=== PATIENT | male | born 1960 | race African-American/Black ===

== ENCOUNTER 2016-09-23 10:57 | Inpatient (IN) | payer BC ==
[2016-09-23 11:21] VITALS: BMI 35.9
--- NOTE | 2016-09-23 11:40 | PDOC ---
History of Present Illness - General Chief Complaint: Nausea/Vomiting Stated Complaint: LOSS OF APPETITE, VOMITING Time Seen by Provider: 09/23/16 11:30 History Source: Patient Exam Limitations: No Limitations - History of Present Illness Initial Comments: 09/23/16 11:57 Patient is a 55 year old male with PMH of autoimmune hepatitis, alcohol-induced pancreatitis, depression & hypertension who presents to ED with 3 days fatigue. He states he has felt weak, with no appetite for 3 days. He also reports intermittent hiccups that last as long as 3 hours over the same time period increased gas. He had 1 episode of vomiting last night, with minimal nonbloody nonbilious output. Denies diarrhea but says he has had to strain during bowel movements in last few days and had some pink blood noted on his toilet paper this morning. Denies fever, chills, cough, shortness of breath, chest pain, change in vision or abdominal pain. Last colonoscopy was 5 years ago. Past History - Travel Traveled outside of the country in the last 30 days: No Close contact w/someone who was outside of country & ill: No - Past Medical History Allergies/Adverse Reactions: Allergies Allergy/AdvReac Type Severity Reaction Status Date / Time ciprofloxacin [From Cipro] Allergy Rash Verified 09/23/16 11:16 ciprofloxacin HCl Allergy Rash Verified 09/23/16 11:16 [From Cipro] Home Medications: Ambulatory Orders Alprazolam [Xanax] 2 mg PO BID PRN 09/23/16 Amlodipine Besylate [Norvasc -] 10 mg PO DAILY 09/23/16 Azathioprine [Imuran -] 50 mg PO DAILY 09/23/16 Fenofibrate 290 mg PO BID 09/23/16 Lisinopril [Prinivil] 20 mg PO DAILY 09/23/16 [place]-3 Acid Ethyl Esters [Lovaza] 1 gm PO DAILY 09/23/16 GI Disorders: Yes (PANCREATITIS 2009, Autoimmune Hepatitis) HTN: Yes - Family Disease History Comment:: 09/23/16 12:09 noncontributory - Psycho/Social/Smoking Cessation Hx Anxiety: No Suicidal Ideation: No Smoking Status: Yes Smoking History: Former smoker Have you smoked in the past 12 months: No Number of Cigarettes Smoked Daily: 0 Cigars Per Day: 1 Information on smoking cessation initiated: No Hx Alcohol Use: Yes Drug/Substance Use Hx: No Review of Systems - Review of Systems Able to Perform ROS?: Yes Is the patient limited Senegalese proficient: No Constitutional: Yes: Loss of Appetite. No: Chills, Fever HEENTM: No: Blurred Vision, Tinnitus, Throat Pain, Difficulty Swallowing Respiratory: No: Cough, Shortness of Breath, Wheezing Cardiac (ROS): No: Chest Pain, Edema, Lightheadedness, Palpitations ABD/GI: Yes: Vomiting. No: Constipated, Diarrhea, Tarry Stools : No: Burning, Dysuria Musculoskeletal: No: Back Pain Neurological: No: Headache, Numbness, Paresthesia, Ataxia Psychiatric: Yes: Anxiety All Other Systems: Reviewed and Negative *Physical Exam - Vital Signs Last Vital Signs Temp Pulse Resp BP Pulse Ox 98.3 F 133 H 20 107/73 97 09/23/16 11:16 09/23/16 11:16 09/23/16 11:16 09/23/16 11:16 09/23/16 11:16 - Physical Exam Comments: 09/23/16 12:12 Hiccups during exam General Appearance: Yes: Nourished, Appropriately Dressed HEENT: positive: EOMI, JAIME, Pharynx Normal, Scleral Icterus (R), Scleral Icterus (L) Neck: positive: Trachea midline, Normal Thyroid, Supple Respiratory/Chest: positive: Lungs Clear, Normal Breath Sounds Cardiovascular: positive: Regular Rhythm, S1, S2, Tachycardia Gastrointestinal/Abdominal: positive: Normal Bowel Sounds, Flat, Soft Musculoskeletal: positive: Normal Inspection Extremity: positive: Normal Inspection, Normal Range of Motion Integumentary: positive: Dry, Warm, Jaundice (very mild) Neurologic: positive: wood barker II-XII NML intact, Fully Oriented, Alert, Normal Mood/ Affect, Motor Strength 5/5 ED Treatment Course - LABORATORY CBC & Chemistry Diagram: 09/23/16 12:06 09/23/16 12:06 Medical Decision Making - Medical Decision Making 09/23/16 12:13 Ordered CBC, CMP, Lipase, Influenza swab. Jaundice, history of pancreatitis, loss of appetite, hiccups concerning for abdominal malignancy. Will very likely need CT imaging once blood tests return. 09/23/16 14:02 LFT's and Total Bilirubin markedly elevated. Will order CT Abdomen/Pelvis without contrast (Cr 1.4). 09/23/16 15:59 CT shows diffuse fatty infiltration of liver but no acute pathology or obvious malignancies.Will discuss elevated LFT's & bilirubin with patient GI Dr Sánchez. 09/23/16 16:31 Received blood testing results from Dr Sánchez's office. On August 11, 2016 AST & ALT were both 35. Total bilirubin was 0.6. Total Bilirubin was 0.3. Patient has had acute tramsaminitis & acute hyperbilirubinemia. Will discuss admission with hospitalist service. 09/23/16 16:[address] Sánchez who agrees patient needs admission for further workup. Spoke with Dr Franco who agrees to admit patient under hospitalist service. *DC/Admit/Observation/Transfer Diagnosis at time of Disposition: Elevated transaminase measurement, Hyperbilirubinemia - Discharge Dispostion Admit: Yes
--- NOTE | 2016-09-23 12:19 | PDOC ---
Attending Attestation - Resident Resident Name: Mark Chandra - ED Attending Attestation I have performed the following: I have examined & evaluated the patient, The case was reviewed & discussed with the resident, I agree w/resident's findings & plan, Exceptions are as noted - HPI HPI: 55 yo M history autoimmune hepatitis, pancreatitis, depression, hypertension presents with 3 days fatigue, weakness, poor appetite. Poor PO intake as well. He has recently noted that he is having intermittent hiccups that can last for hours at a time. Noted trace blood after defecating. No recent illness. - Physicial Exam PE: GENERAL: Awake, alert, and fully oriented, in no acute distress. +Jaundice. HEAD: No signs of trauma EYES: PERRLA, EOMI, +scleral icterus, conjunctiva clear ENT: Auricles normal inspection, hearing grossly normal, nares patent, oropharynx clear without exudates. Moist mucosa NECK: Normal ROM, supple, no lymphadenopathy, JVD, or masses LUNGS: Breath sounds equal, clear to auscultation bilaterally. No wheezes, and no crackles HEART: Regular rate and rhythm, normal S1 and S2, no murmurs, rubs or gallops ABDOMEN: Soft, nontender, normoactive bowel sounds. No guarding, no rebound. No masses EXTREMITIES: Normal range of motion, no edema. No clubbing or cyanosis. No cords, erythema, or tenderness NEUROLOGICAL: Cranial nerves II through XII grossly intact. Normal speech, normal gait SKIN: Warm, Dry, normal turgor, no rashes or lesions noted. - Medical Decision Making 55 yo M history autoimmune hepatitis, pancreatitis presenting with jaundice, poor appetite. Labs show significantly elevated LFTs, which are above baseline as per Dr. Sánchez. Will admit.
[2016-09-23] MEDS ORDERED: SODIUM CHLORIDE 1,000 ML IV STA (13:21)
[2016-09-23 13:30] LABS: BASOPHIL 0.2 % (0-2.0); EOSINOPHIL 0.3 % (0-4.5); MCH 31.9 pg (25.7-33.7); MCHC 33.2 g/dl (32.0-35.9); MEAN PLT VOLUME 10.3 fl (7.5-11.1); NEUTROPHILS 81.5 % (42.8-82.8); PLATELET COUNT 113 K/MM3 (134-434); WHITE BLOOD COUNT 6.5 K/mm3 (4.0-10.0)
[2016-09-23 13:53] LABS: ALBUMIN 3.1 g/dl (3.4-5.0); BILIRUBIN,TOTAL 5.9 mg/dL (0.2-1.0); CALCIUM 8.8 mg/dL (8.5-10.1); CREATININE 1.4 mg/dL (0.7-1.3); TOT PROT 6.4 g/dl (6.4-8.2)
--- NOTE | 2016-09-23 18:46 | PN ---
Progress Note (short form) - Note Progress Note: Patient seen, labs reviewed Longstanding patient of mine, with auto-immune hepatitis, now with breakthrough On azathioprine to now with normal LFT's last month. Will start steroids at this time Check for acute hepatitis Expect improvement Full consult to follow
--- NOTE | 2016-09-23 18:47 | PN ---
Teaching Attending Note Name of Resident: Alise Bailey ATTENDING PHYSICIAN STATEMENT I saw and evaluated the patient. I reviewed the resident's note and discussed the case with the resident. I agree with the resident's findings and plan as documented. SUBJECTIVE: Patient is comfortable, denies having any pain or shortness of breath, denies any jaundice or yellow abdomen, the only time patient realized when he was told by ED.doctors. that his eyes are yellow. OBJECTIVE: Vital Signs Temperature 98.3 F 09/23/16 17:56 Pulse Rate 109 H 09/23/16 17:56 Respiratory Rate 18 09/23/16 17:56 Blood Pressure 124/78 09/23/16 17:56 O2 Sat by Pulse Oximetry (%) 98 09/23/16 17:56 General Appearance: Yes: Nourished, Appropriately Dressed HEENT: positive: EOMI, JAIME, Pharynx Normal, Scleral Icterus bl Neck: positive: Trachea midline, Normal Thyroid, Supple Respiratory/Chest: positive: Lungs Clear, Normal Breath Sounds Cardiovascular: positive: Regular Rhythm, S1, S2, Tachycardia Gastrointestinal/Abdominal: positive: Normal Bowel Sounds, Flat, Soft Musculoskeletal: positive: Normal Inspection Extremity: positive: Normal Inspection, Normal Range of Motion Integumentary: positive: Dry, Warm, Jaundice (very mild) Neurologic: positive: public services assistant II-XII NML intact, Fully Oriented, Alert, Normal Mood/ Affect, Motor Strength 5/5 CBCD WBC 6.5 K/mm3 (4.0-10.0) 09/23/16 12:06 RBC 4.80 M/mm3 (4.00-5.60) 09/23/16 12:06 Hgb 15.3 GM/dL (11.7-16.9) D 09/23/16 12:06 Hct 46.0 % (35.4-49) 09/23/16 12:06 MCV 96.0 fl (80-96) 09/23/16 12:06 MCHC 33.2 g/dl (32.0-35.9) 09/23/16 12:06 RDW 15.0 % (11.9-15.9) D 09/23/16 12:06 Plt Count 113 K/MM3 (134-434) L D 09/23/16 12:06 MPV 10.3 fl (7.5-11.1) 09/23/16 12:06 CMP Sodium 134 mmol/L (136-145) L 09/23/16 12:06 Potassium 4.2 mmol/L (3.5-5.1) 09/23/16 12:06 Chloride 93 mmol/L (98-107) L D 09/23/16 12:06 Carbon Dioxide 29 mmol/L (21-32) 09/23/16 12:06 Anion Gap 12 (8-16) 09/23/16 12:06 BUN 12 mg/dL (7-18) 09/23/16 12:06 Creatinine 1.4 mg/dL (0.7-1.3) H D 09/23/16 12:06 Creat Clearance w eGFR 52.81 (>60) 09/23/16 12:06 Random Glucose 112 mg/dL (74-106) H D 09/23/16 12:06 Calcium 8.8 mg/dL (8.5-10.1) 09/23/16 12:06 Total Bilirubin 5.9 mg/dL (0.2-1.0) H D 09/23/16 12:06 AST 694 U/L (15-37) H D 09/23/16 12:06 ALT 347 U/L (12-78) H D 09/23/16 12:06 Alkaline Phosphatase 99 U/L (45-117) D 09/23/16 12:06 Total Protein 6.4 g/dl (6.4-8.2) 09/23/16 12:06 Albumin 3.1 g/dl (3.4-5.0) L 09/23/16 12:06 Current Medications Generic Name Dose Route Start Last Admin Trade Name Freq PRN Reason Stop Dose Admin Methylprednisolone Sodium Succinate 40 mg 09/23/16 18:15 Solu-Medrol - IVPB Q8H-IV [facility] Home Medications Medication Instructions Recorded Alprazolam [Xanax] 2 mg PO BID PRN 09/23/16 Amlodipine Besylate [Norvasc -] 10 mg PO DAILY 09/23/16 Azathioprine [Imuran -] 50 mg PO DAILY 09/23/16 Fenofibrate 290 mg PO BID 09/23/16 Lisinopril [Prinivil] 20 mg PO DAILY 09/23/16 [place]-3 Acid Ethyl Esters [Lovaza] 1 gm PO DAILY 09/23/16 ASSESSMENT AND PLAN: Patient is a 55 year old male with PMHx of autoimmune hepatitis, alcohol- induced pancreatitis 2008, HTN, depression who presents to the hospital complaining of fatigue for the past 3 days. # Recurrence of auto-immune hepatitis ; Patient of Dr. Princess DELAVLLE , placed on IV steroids. Protonix continue, continue Imuran; will trend the LFTs daily. # Hx of HTN continue home meds # HLD continue Lovaza, Finofibrate DVt Px: SCD
--- NOTE | 2016-09-23 19:01 | HP ---
CHIEF COMPLAINT: weakness PCP: HISTORY OF PRESENT ILLNESS: Patient is a 55 year old male with PMH of autoimmune hepatitis, alcohol-induced pancreatitis 2008, HTN, depression who presents to the hospital complaining of fatigue for 3 days. He states that didn't have appetite for 3 days and had intermittent hiccups, increased gas. He had 2 episodes of vomiting last night, non-bloody non-bilious output. He states that recently his bowel movements are hard, not sure if he noticed any blood in it. He was told in ED that his eyes look yellow. He states that has never felt like that before. Denies fever, chills cough, shortness of breath, chest pain, change in vision or abdominal pain, dysuria, increased frequency, urgency. ER course was notable for: (1) AST 697, ALT 347 (2)Cr 1.4, (3)PLt 113 PAST MEDICAL HISTORY: Autoimmune hepatitis diagnosed 2 years ago, treated with AZA and Prednisone. Hearing loss. PAST SURGICAL HISTORY: cholesteatoma removal on right side Social History: Smoking:Former smoker Alcohol:Denies Drugs: Denies Family History: N/A Allergies: ciprofloxacin [From Cipro] Allergy (Verified 09/23/16 11:16) Rash ciprofloxacin HCl [From Cipro] Allergy (Verified 09/23/16 11:16) Rash HOME MEDICATIONS: Home Medications Medication Instructions Recorded Alprazolam [Xanax] 2 mg PO BID PRN 09/23/16 Amlodipine Besylate [Norvasc -] 10 mg PO DAILY 09/23/16 Azathioprine [Imuran -] 50 mg PO DAILY 09/23/16 Fenofibrate 290 mg PO BID 09/23/16 Lisinopril [Prinivil] 20 mg PO DAILY 09/23/16 [place]-3 Acid Ethyl Esters [Lovaza] 1 gm PO DAILY 09/23/16 REVIEW OF SYSTEMS CONSTITUTIONAL: generalized weakness, malaise, loss of appetite, Absent: fever, chills, diaphoresis, weight change HEENT: Absent: rhinorrhea, nasal congestion, throat pain, throat swelling, difficulty swallowing, mouth swelling, ear pain, eye pain, visual changes CARDIOVASCULAR: Absent: chest pain, syncope, palpitations, irregular heart rate, lightheadedness , peripheral edema RESPIRATORY: Absent: cough, shortness of breath, dyspnea with exertion, orthopnea, wheezing, stridor, hemoptysis GASTROINTESTINAL: Absent: abdominal pain, abdominal distension, nausea, vomiting, diarrhea, constipation, melena, hematochezia GENITOURINARY: Absent: dysuria, frequency, urgency, hesitancy, hematuria, flank pain, genital pain MUSCULOSKELETAL: Absent: myalgia, arthralgia, joint swelling, back pain, neck pain ENDOCRINE: Absent: unexplained weight gain, unexplained weight loss, NEUROLOGIC: Absent: headache, bladder or bowel incontinence PSYCHIATRIC: Absent: anxiety, depression, suicidal or homicidal ideation, hallucinations. PHYSICAL EXAMINATION Vital Signs - 24 hr 09/23/16 17:56 Temperature 98.3 F Pulse Rate [ 109 H Right] Respiratory 18 Rate Blood Pressure 124/78 [Right Arm] O2 Sat by Pulse 98 Oximetry (%) GENERAL: Awake, alert, and fully oriented, in no acute distress. HEAD: Normal with no signs of trauma. EYES: extraocular movements intact, sclera icteric, conjunctiva clear. No lid lag. EARS, NOSE, THROAT: Moist mucous membranes, hearing aid. NECK: supple without lymphadenopathy or masses. LUNGS: Breath sounds equal, clear to auscultation bilaterally. No wheezes, and no crackles. No accessory muscle use. HEART: Regular rate and rhythm, normal S1 and S2 without murmur, rub or gallop. ABDOMEN: Soft, nontender, not distended, normoactive bowel sounds, no guarding, no rebound, no masses. MUSCULOSKELETAL: No bony deformities or tenderness. UPPER EXTREMITIES: No peripheral edema. LOWER EXTREMITIES: No peripheral edema. NEUROLOGICAL: Normal speech. Gait not observed. PSYCHIATRIC: Cooperative. Good eye contact. Appropriate mood and affect. SKIN: Warm, dry, normal turgor, no rashes or lesions noted. ASSESSMENT/PLAN: Patient is a 55 year old male with PMH of autoimmune hepatitis, alcohol-induced pancreatitis 2008, HTN, depression who presents to the hospital complaining of fatigue for 3 days. He states that didn't have appetite for 3 days and had intermittent hiccups, increased gas. He had 2 episodes of vomiting last night, non-bloody non-bilious output. He states that recently his bowel movements are hard, not sure if he noticed any blood in it. He was told recently that his eyes look yellow. Autoimmune hepatitis: -recurrence of previously well controlled disease -steroids: Methylprednisolone 40mg IV Q8H -HCV ab -liver panel -HBs Ag -f/u GI consultation -CT abdomen no acute pathology GREGORY: -Cr 1.4 -IVF -avoid nephrotoxic substances Thrombocytopenia: -continue steroids Depression: -continue Xanax HTN: -continue Lisinopril 20 mg qd and Amlodipine 10 mg qd Hypertriglyceridemia: -continue fenofibrate 290 mg PO BID F/E/N: NS/low Na/low sodium low cholesterol Disposition: Med Surg. Problem List - Problem (1) Hyperbilirubinemia Code(s): E80.6 - OTHER DISORDERS OF BILIRUBIN METABOLISM (2) Transaminitis Code(s): R74.0 - NONSPEC ELEV OF LEVELS OF TRANSAMNS & LACTIC ACID DEHYDRGNSE Visit type - Emergency Visit Emergency Visit: Yes ED Registration Date: 09/23/16 Care time: The patient presented to the Emergency Department on the above date and was hospitalized for further evaluation of their emergent condition. - New Patient This patient is new to me today: Yes Date on this admission: 09/23/16 - Critical Care Critical Care patient: No
[2016-09-23] MEDS: methylPREDNISolone NA SUCC 40 MG/1 ML VIAL IVPB SCH (19:30)
[2016-09-23] MEDS ORDERED: methylPREDNISolone NA SUCC 40 MG/1 ML VIAL ONE (19:33)
[2016-09-23] MEDS: SODIUM CHLORIDE 0.45% 1,000 ML IV SCH ×2 (21:43→21:45)
[2016-09-23] MEDS ORDERED: FENOFIBRATE 145 MG PO SCH (22:00)
[2016-09-23] MEDS ORDERED: FENOFIBRATE PO SCH (22:00)
[2016-09-24] MEDS: methylPREDNISolone NA SUCC 40 MG/1 ML VIAL IVPB SCH ×3 (02:58→18:19)
[2016-09-24 07:40] LABS: MCH 32.1 pg (25.7-33.7); MEAN CELL VOLUME 97.3 fl (80-96); MEAN PLT VOLUME 11.1 fl (7.5-11.1); PLATELET COUNT 103 K/MM3 (134-434); RDW 14.9 % (11.9-15.9); WHITE BLOOD COUNT 4.9 K/mm3 (4.0-10.0)
[2016-09-24 07:52] LABS: INR 1.37 (0.82-1.09); PROTHROMBIN TIME (PATIENT) 15.2 SEC (9.98-11.88)
[2016-09-24 07:55] LABS: ACTIVATED PTT 37.6 SECONDS (26.9-34.4)
[2016-09-24 08:17] LABS: ALBUMIN 2.9 g/dl (3.4-5.0); ANION GAP 12 (8-16); BILIRUBIN,DIRECT 4.1 mg/dL (0.0-0.2); BILIRUBIN,TOTAL 6.2 mg/dL (0.2-1.0); CALCIUM 8.3 mg/dL (8.5-10.1); CO2 27 mmol/L (21-32); CREATININE 1.1 mg/dL (0.7-1.3); GLUCOSE,RANDOM 136 mg/dL (74-106); SGPT/ALT 303 U/L (12-78); TOT PROT 6.2 g/dl (6.4-8.2)
[2016-09-24 08:19] LABS: ALK PHOS 85 U/L (45-117)
[2016-09-24 08:22] LABS: SGOT/AST 511 U/L (15-37)
[2016-09-24 08:23] LABS: THYROID STIMULATING HORMONE 0.43 uIU/ml (0.358-3.74)
[2016-09-24] MEDS: azaTHIOprine 50 MG TABLET PO SCH (09:31)
[2016-09-24] MEDS: LISINOPRIL 20 MG TABLET (FP) PO SCH (09:31)
[2016-09-24] MEDS: amLODIPine BESYLATE 10 MG TABLET (FP) PO SCH (09:31)
[2016-09-24] MEDS: FENOFIBRIC ACID 135 MG CAP PO SCH (10:28)
[2016-09-24] MEDS: OMEGA-3 ACID ETHYL ESTERS (FATTY-ACIDS) 1 GM CAPSULE (FP) PO SCH ×3 (10:38→21:49)
[2016-09-24 11:47] LABS: FREE T4 1.05 ng/dl (0.76-1.16); T3 UPTAKE 35.3 % (33-40)
--- NOTE | 2016-09-24 15:01 | PN ---
Physical Exam: SUBJECTIVE: Patient seen and examined Patient is feeling better, no acute distress. No dizziness, no lethargy at this time, no shortness of breath. OBJECTIVE: Vital Signs Temperature 97.4 F L 09/24/16 08:53 Pulse Rate 98 H 09/24/16 08:53 Respiratory Rate 18 09/24/16 09:00 Blood Pressure 112/75 09/24/16 08:53 O2 Sat by Pulse Oximetry (%) 94 L 09/24/16 09:00 General Appearance: Yes: Nourished, Appropriately Dressed HEENT: positive: EOMI, JAIME, Pharynx Normal, Scleral Icterus bl Neck: positive: Trachea midline, Normal Thyroid, Supple Respiratory/Chest: positive: Lungs Clear, Normal Breath Sounds Cardiovascular: positive: Regular Rhythm, S1, S2, RRR, Gastrointestinal/Abdominal: positive: Normal Bowel Sounds, Flat, Soft Musculoskeletal: positive: Normal Inspection Extremity: positive: Normal Inspection, Normal Range of Motion Integumentary: positive: Dry, Warm, Jaundice (very mild) Neurologic: positive: on site coordinator II-XII NML intact, Fully Oriented, Alert, Pshyc: Normal Mood/Affect, Motor Strength 5/5 Laboratory Results - last 24 hr 09/23/16 09/24/16 09/24/16 19:59 06:15 06:15 WBC 4.9 RBC 4.54 Hgb 14.6 Hct 44.2 MCV 97.3 H MCHC 33.0 RDW 14.9 Plt Count 103 L MPV 11.1 INR PTT (Actin FS) Sodium 136 Potassium 4.2 Chloride 97 L Carbon Dioxide 27 Anion Gap 12 BUN 9 D Creatinine 1.1 D Creat Clearance w eGFR > 60 Random Glucose 136 H D Calcium 8.3 L Total Bilirubin 6.2 H Direct Bilirubin 4.1 H D AST 511 H D ALT 303 H Alkaline Phosphatase 85 Total Protein 6.2 L Albumin 2.9 L Lipase TSH Free T4 Free T4 Index Resin T3 Uptake Hepatitis C Antibody Cancelled 09/24/16 09/24/16 09/24/16 06:15 06:15 06:15 WBC RBC Hgb Hct MCV MCHC RDW Plt Count MPV INR 1.37 H D PTT (Actin FS) 37.6 H Sodium Potassium Chloride Carbon Dioxide Anion Gap BUN Creatinine Creat Clearance w eGFR Random Glucose Calcium Total Bilirubin Direct Bilirubin AST ALT Alkaline Phosphatase Total Protein Albumin Lipase 72 L TSH 0.43 Free T4 1.05 Cancelled Free T4 Index Cancelled Resin T3 Uptake 35.3 Hepatitis C Antibody Active Medications Generic Name Dose Route Start Last Admin Trade Name Leobardo PRN Reason Stop Dose Admin Amlodipine Besylate 10 mg 09/24/16 10:00 09/24/16 09:31 Norvasc - PO 10 mg DAILY DYANA Administration Azathioprine 50 mg 09/24/16 10:00 09/24/16 09:31 Imuran - PO 50 mg DAILY DYANA Administration Fenofibric Acid 135 mg 09/24/16 10:00 09/24/16 10:28 Trilipix - PO 135 mg DAILY DYANA Administration Sodium Chloride 1,000 mls @ 100 mls/hr 09/24/16 15:00 1/2 Normal Saline IV 09/26/16 00:59 ASDIR DYANA Lisinopril 20 mg 09/24/16 10:00 09/24/16 09:31 Prinivil PO 20 mg DAILY DYANA Administration Methylprednisolone Sodium Succinate 40 mg 09/23/16 18:15 09/24/16 09:32 Solu-Medrol - IVPB 40 mg Q8H-IV DYANA Administration [place]-7-Oike Ethyl Esters 2 gm 09/24/16 22:00 Lovaza - PO BID DYANA ASSESSMENT/PLAN: ASSESSMENT AND PLAN: Patient is a 55 year old male with PMHx of autoimmune hepatitis, alcohol- induced pancreatitis 2009, HTN, depression who presents to the hospital complaining of fatigue for the past 3 days. # Recurrence of auto-immune hepatitis ; Patient of Dr. Princess DELVALLE , placed on IV steroids 40mg q8h, Protonix continue, continue Imuran; will continue to trend the LFTs daily.IVF continue for now, # Hx of HTN continue home meds # HLD continue Lovaza, Finofibrate DVt Px: SCD Visit type - Emergency Visit Emergency Visit: Yes ED Registration Date: 09/23/16 Care time: The patient presented to the Emergency Department on the above date and was hospitalized for further evaluation of their emergent condition. - New Patient This patient is new to me today: No - Critical Care Critical Care patient: No
[2016-09-24] MEDS: SODIUM CHLORIDE 0.45% 1,000 ML IV SCH (16:39)
[2016-09-24] MEDS ORDERED: PT OWN MED DRAWER 7, Y5N ONE (21:08)
[2016-09-25] MEDS: methylPREDNISolone NA SUCC 40 MG/1 ML VIAL IVPB SCH ×3 (01:25→17:12)
[2016-09-25] MEDS: SODIUM CHLORIDE 0.45% 1,000 ML IV SCH ×2 (06:14→15:00)
[2016-09-25 08:43] LABS: BASOPHIL 0.1 % (0-2.0); MCH 32.5 pg (25.7-33.7); MCHC 33.5 g/dl (32.0-35.9); MEAN CELL VOLUME 97.2 fl (80-96); MEAN PLT VOLUME 11.3 fl (7.5-11.1); NEUTROPHILS 91.6 % (42.8-82.8); PLATELET COUNT 100 K/MM3 (134-434); RDW 14.9 % (11.9-15.9); WHITE BLOOD COUNT 11.5 K/mm3 (4.0-10.0)
[2016-09-25 08:46] LABS: ALBUMIN 2.6 g/dl (3.4-5.0); ALK PHOS 70 U/L (45-117); ANION GAP 12 (8-16); BILIRUBIN,TOTAL 4.3 mg/dL (0.2-1.0); CALCIUM 8.3 mg/dL (8.5-10.1); CO2 25 mmol/L (21-32); GLUCOSE,RANDOM 164 mg/dL (74-106); SGOT/AST 248 U/L (15-37); SGPT/ALT 204 U/L (12-78); TOT PROT 5.7 g/dl (6.4-8.2)
[2016-09-25] MEDS: OMEGA-3 ACID ETHYL ESTERS (FATTY-ACIDS) 1 GM CAPSULE (FP) PO SCH ×2 (09:43→21:25)
[2016-09-25] MEDS: amLODIPine BESYLATE 10 MG TABLET (FP) PO SCH (09:43)
[2016-09-25] MEDS: FENOFIBRIC ACID 135 MG CAP PO SCH (09:43)
[2016-09-25] MEDS: LISINOPRIL 20 MG TABLET (FP) PO SCH (09:43)
[2016-09-25] MEDS: azaTHIOprine 50 MG TABLET PO SCH (09:43)
--- NOTE | 2016-09-25 10:39 | PN ---
Progress Note (short form) - Note Progress Note: Patient is feeling better, feeling anxious and would like his Xanax. Vital Signs Temperature 98.2 F 09/25/16 08:45 Pulse Rate 90 09/25/16 08:45 Respiratory Rate 20 09/25/16 09:00 Blood Pressure 124/77 09/25/16 08:45 O2 Sat by Pulse Oximetry (%) 95 09/25/16 09:00 No change in his PE. CBCD WBC 11.5 K/mm3 (4.0-10.0) H D 09/25/16 07:00 RBC 4.16 M/mm3 (4.00-5.60) 09/25/16 07:00 Hgb 13.5 GM/dL (11.7-16.9) 09/25/16 07:00 Hct 40.4 % (35.4-49) 09/25/16 07:00 MCV 97.2 fl (80-96) H 09/25/16 07:00 MCHC 33.5 g/dl (32.0-35.9) 09/25/16 07:00 RDW 14.9 % (11.9-15.9) 09/25/16 07:00 Plt Count 100 K/MM3 (134-434) L 09/25/16 07:00 MPV 11.3 fl (7.5-11.1) H 09/25/16 07:00 CMP Sodium 138 mmol/L (136-145) 09/25/16 07:00 Potassium 4.1 mmol/L (3.5-5.1) 09/25/16 07:00 Chloride 101 mmol/L (98-107) 09/25/16 07:00 Carbon Dioxide 25 mmol/L (21-32) 09/25/16 07:00 Anion Gap 12 (8-16) 09/25/16 07:00 BUN 9 mg/dL (7-18) 09/25/16 07:00 Creatinine 1.0 mg/dL (0.7-1.3) 09/25/16 07:00 Creat Clearance w eGFR > 60 (>60) 09/25/16 07:00 Random Glucose 164 mg/dL (74-106) H D 09/25/16 07:00 Calcium 8.3 mg/dL (8.5-10.1) L 09/25/16 07:00 Total Bilirubin 4.3 mg/dL (0.2-1.0) H D 09/25/16 07:00 AST 248 U/L (15-37) H D 09/25/16 07:00 ALT 204 U/L (12-78) H D 09/25/16 07:00 Alkaline Phosphatase 70 U/L (45-117) 09/25/16 07:00 Total Protein 5.7 g/dl (6.4-8.2) L 09/25/16 07:00 Albumin 2.6 g/dl (3.4-5.0) L 09/25/16 07:00 Current Medications Generic Name Dose Route Start Last Admin Trade Name Freq PRN Reason Stop Dose Admin Amlodipine Besylate 10 mg 09/24/16 10:00 09/25/16 09:43 Norvasc - PO 10 mg DAILY DYANA Administration Azathioprine 50 mg 09/24/16 10:00 09/25/16 09:43 Imuran - PO 50 mg DAILY DYANA Administration Fenofibric Acid 135 mg 09/24/16 10:00 09/25/16 09:43 Trilipix - PO 135 mg DAILY DYANA Administration Sodium Chloride 1,000 mls @ 100 mls/hr 09/24/16 15:00 09/25/16 06:14 1/2 Normal Saline IV 09/26/16 00:59 100 mls/hr ASDIR DYANA Administration Lisinopril 20 mg 09/24/16 10:00 09/25/16 09:43 Prinivil PO 20 mg DAILY DYANA Administration Methylprednisolone Sodium Succinate 40 mg 09/23/16 18:15 09/25/16 09:43 Solu-Medrol - IVPB 40 mg Q8H-IV DYANA Administration [place]-1-[place] Ethyl Esters 2 gm 09/24/16 22:00 09/25/16 09:43 Lovaza - PO 2 gm BID DYANA Administration Home Medications Medication Instructions Recorded Alprazolam [Xanax] 2 mg PO BID PRN 09/23/16 Amlodipine Besylate [Norvasc -] 10 mg PO DAILY 09/23/16 Azathioprine [Imuran -] 50 mg PO DAILY 09/23/16 Fenofibrate 290 mg PO BID 09/23/16 Lisinopril [Prinivil] 20 mg PO DAILY 09/23/16 [place]-3 Acid Ethyl Esters [Lovaza] 1 gm PO DAILY 09/23/16 A/P: Patient is a 55 year old male with PMHx of autoimmune hepatitis, alcohol- induced pancreatitis 2008, HTN, depression who presents to the hospital complaining of fatigue for the past 3 days. # Recurrence of auto-immune hepatitis , Improving LFTs on IV steroid continue, Patient of Dr. Princess DELVALLE , Protonix continue, continue Imuran; will continue to trend the LFTs daily.IVF continue for now. # anxiety disorder will continue with 1mg BId vs 2mg BID since can affect LFTs. # Hx of HTN continue home meds # HLD continue Lovaza, Finofibrate DVt Px: SCD Visit type - Emergency Visit Emergency Visit: Yes ED Registration Date: 09/23/16 Care time: The patient presented to the Emergency Department on the above date and was hospitalized for further evaluation of their emergent condition. - New Patient This patient is new to me today: No - Critical Care Critical Care patient: No - Discharge Referral Referred to [facility] No
[2016-09-25] MEDS: ALPRAZolam 2 MG TABLET PO SCH ×2 (11:27→21:25)
--- NOTE | 2016-09-25 13:55 | CON.GI ---
Consult Consult Specialty:: GI Referred by:: Hospitalist Reason for Consultation:: Increased LFTs - History of Present Illness Chief Complaint: Fatigue and icterus History of Present Illness: Patient well-known to myself with autoimmune hepatitis controlled with azathioprine, with normal LFT's last month, admitted with markedly increased LFT 's and fatigue. I immediately started him on solumedrol 40 BID with significant improvement in LFTs over 24 hours. - History Source History Provided By: Patient, Medical Record Limitations to Obtaining History: No Limitations - Past Medical History Hepatobiliary: Yes: Other (autoimmune hepatitis) - Alcohol/Substance Use Hx Alcohol Use: Yes - Smoking History Smoking history: Former smoker Have you smoked in the past 12 months: No Aproximately how many cigarettes per day: 0 Home Medications - Allergies Allergies/Adverse Reactions: Allergies Allergy/AdvReac Type Severity Reaction Status Date / Time ciprofloxacin [From Cipro] Allergy Rash Verified 09/23/16 11:16 ciprofloxacin HCl Allergy Rash Verified 09/23/16 11:16 [From Cipro] - Home Medications Home Medications: Ambulatory Orders Alprazolam [Xanax] 2 mg PO BID PRN 09/23/16 Amlodipine Besylate [Norvasc -] 10 mg PO DAILY 09/23/16 Azathioprine [Imuran -] 50 mg PO DAILY 09/23/16 Fenofibrate 290 mg PO BID 09/23/16 Lisinopril [Prinivil] 20 mg PO DAILY 09/23/16 [place]-3 Acid Ethyl Esters [Lovaza] 1 gm PO DAILY 09/23/16 Physical Exam-GI Vital Signs: Vital Signs Temperature 98.2 F 09/25/16 08:45 Pulse Rate 90 09/25/16 08:45 Respiratory Rate 20 09/25/16 09:00 Blood Pressure 124/77 09/25/16 08:45 O2 Sat by Pulse Oximetry (%) 95 09/25/16 09:00 Constitutional: Yes: Well Nourished, Obese Eyes: Yes: Sclera Icterus HENT: Yes: Normocephalic Neck: Yes: Supple Cardiovascular: Yes: Regular Rate and Rhythm Respiratory: Yes: CTA Bilaterally Gastrointestinal Inspection: Yes: WNL ...Auscultate: Yes: Normoactive Bowel Sounds ...Palpate: Yes: Soft. No: Tenderness Labs: CBC, BMP 09/25/16 07:00 09/25/16 07:00 INR, PTT INR 1.37 (0.82-1.09) H D 09/24/16 06:15 Hepatic Panel Total Bilirubin 4.3 mg/dL (0.2-1.0) H D 09/25/16 07:00 Direct Bilirubin 4.1 mg/dL (0.0-0.2) H D 09/24/16 06:15 AST 248 U/L (15-37) H D 09/25/16 07:00 ALT 204 U/L (12-78) H D 09/25/16 07:00 Alkaline Phosphatase 70 U/L (45-117) 09/25/16 07:00 Albumin 2.6 g/dl (3.4-5.0) L 09/25/16 07:00 Imaging - Results Cat Scan: Report Reviewed (Likely cirrhosis on scan. (not fatty liver)) Assessment/Plan Patient with good response to steroids with significant drop in LFT's since starting. Expect good outcome. Check fibrosure and awaiting hep B/C results (unlikely) Continue solumedrol for now
[2016-09-25] MEDS ORDERED: PT OWN MED DRAWER 7, Y5N ONE ×2 (21:00→21:25)
[2016-09-26] MEDS: methylPREDNISolone NA SUCC 40 MG/1 ML VIAL IVPB SCH ×2 (02:04→10:21)
--- NOTE | 2016-09-26 06:42 | HOSP ---
Physical Examination Vital Signs: Vital Signs Temperature 97.9 F 09/25/16 19:00 Pulse Rate 102 H 09/25/16 19:00 Respiratory Rate 20 09/25/16 19:00 Blood Pressure 132/77 09/25/16 19:00 O2 Sat by Pulse Oximetry (%) 95 09/25/16 09:00 Labs: CBC, BMP 09/25/16 07:00 09/25/16 07:00 Hospitalist Encounter Assessment: I was Notified by the RN that patient fell out of bed. When arriving patient states that he was reaching over to get his cell phone when he fell to the floor and hit the right lower rib area. Patient states he's not feeling any pain currently and rates the pain a 2/10 when he's not moving but feels discomfort when he sleeps on it. Patient is breathing without difficulty and is moving around without difficulty. Patient denies hitting his head. PLAN: -Motrin 600mg po once -If pain worsens or continues, will consider Chest X-ray Visit type - Emergency Visit Emergency Visit: No - New Patient This patient is new to me today: Yes Date on this admission: 09/27/16 - Critical Care Critical Care patient: No
[2016-09-26] MEDS ORDERED: IBUPROFEN 600 MG TABLET (FP) PO ONE (07:00)
[2016-09-26 07:30] LABS: MCH 32.5 pg (25.7-33.7); MEAN CELL VOLUME 98.5 fl (80-96); MEAN PLT VOLUME 11.4 fl (7.5-11.1); PLATELET COUNT 105 K/MM3 (134-434); RDW 15.3 % (11.9-15.9); WHITE BLOOD COUNT 10.7 K/mm3 (4.0-10.0)
[2016-09-26 08:07] LABS: CALCIUM 8.7 mg/dL (8.5-10.1)
[2016-09-26 08:13] LABS: ALBUMIN 2.7 g/dl (3.4-5.0); ALK PHOS 70 U/L (45-117); ANION GAP 9 (8-16); BILIRUBIN,TOTAL 2.6 mg/dL (0.2-1.0); CO2 28 mmol/L (21-32); GLUCOSE,RANDOM 147 mg/dL (74-106); SGOT/AST 152 U/L (15-37); SGPT/ALT 159 U/L (12-78); TOT PROT 5.7 g/dl (6.4-8.2)
[2016-09-26 09:21] VITALS: PULSE 89
[2016-09-26] MEDS ORDERED: PT OWN MED DRAWER 7, Y5N ONE (09:34)
[2016-09-26] MEDS: ALPRAZolam 2 MG TABLET PO SCH (10:20)
[2016-09-26] MEDS: amLODIPine BESYLATE 10 MG TABLET (FP) PO SCH (10:27)
[2016-09-26] MEDS: LISINOPRIL 20 MG TABLET (FP) PO SCH (10:27)
[2016-09-26] MEDS: OMEGA-3 ACID ETHYL ESTERS (FATTY-ACIDS) 1 GM CAPSULE (FP) PO SCH (10:27)
[2016-09-26] MEDS: FENOFIBRIC ACID 135 MG CAP PO SCH (10:27)
[2016-09-26] MEDS: azaTHIOprine 50 MG TABLET PO SCH (10:27)
[2016-09-26 15:34] VITALS: BP 121/80; TEMP 97.5
[2016-09-26] MEDS ORDERED: DOCUSATE SODIUM 100 MG CAPSULE (FP) PO ONE (15:44)
--- NOTE | 2016-09-26 16:00 | PN ---
GI Progress Note Subjective: patient admitted with exacerbation of autoimmune hepatitis, medically improved, lfts marked improvement - Objective Vital Signs: Vital Signs Temperature 97.5 F L 09/26/16 15:32 Pulse Rate 89 09/26/16 15:32 Respiratory Rate 20 09/26/16 15:32 Blood Pressure 121/80 09/26/16 15:32 O2 Sat by Pulse Oximetry (%) 95 09/26/16 09:00 Constitutional: Well Nourished Eyes: Yes: Conjunctiva Clear HENT: Yes: Atraumatic Neck: Yes: Supple Cardiovascular: Yes: Regular Rate and Rhythm Respiratory: Yes: CTA Bilaterally ...Palpate: Yes: Soft. No: Firm/Rigid, Guarding, Hepatomegaly, Mass, Pulsatile Mass, Splenomegaly, Tenderness Labs: CBC, BMP 09/26/16 05:37 09/26/16 05:37 INR, PTT INR 1.37 (0.82-1.09) H D 09/24/16 06:15 Problem List - Problems (1) Autoimmune hepatitis Assessment/Plan: R> wiil need to bridge with Prednisone 60mg daily with Immuran 200mg daily, 6TGN levels and 6 mmpn in 6 weeks CBC, CMP,ggtp Monday ff-up next Monday 9 am [facility] made aware to ff-up with Dr Sánchez Code(s): K75.4 - AUTOIMMUNE HEPATITIS
--- NOTE | 2016-09-26 16:18 | PN ---
Teaching Attending Note Name of Resident: Alise Bailey ATTENDING PHYSICIAN STATEMENT I saw and evaluated the patient. I reviewed the resident's note and discussed the case with the resident. I agree with the resident's findings and plan as documented. SUBJECTIVE: Patient is feeling better with no acute distress. His LFts looking better. No new complains OBJECTIVE: Vital Signs Temperature 97.5 F L 09/26/16 15:32 Pulse Rate 89 09/26/16 15:32 Respiratory Rate 20 09/26/16 15:32 Blood Pressure 121/80 09/26/16 15:32 O2 Sat by Pulse Oximetry (%) 95 09/26/16 09:00 CBCD WBC 10.7 K/mm3 (4.0-10.0) H 09/26/16 05:37 RBC 4.02 M/mm3 (4.00-5.60) 09/26/16 05:37 Hgb 13.1 GM/dL (11.7-16.9) 09/26/16 05:37 Hct 39.6 % (35.4-49) 09/26/16 05:37 MCV 98.5 fl (80-96) H 09/26/16 05:37 MCHC 33.0 g/dl (32.0-35.9) 09/26/16 05:37 RDW 15.3 % (11.9-15.9) 09/26/16 05:37 Plt Count 105 K/MM3 (134-434) L 09/26/16 05:37 MPV 11.4 fl (7.5-11.1) H 09/26/16 05:37 CMP Sodium 139 mmol/L (136-145) 09/26/16 05:37 Potassium 4.2 mmol/L (3.5-5.1) 09/26/16 05:37 Chloride 102 mmol/L (98-107) 09/26/16 05:37 Carbon Dioxide 28 mmol/L (21-32) 09/26/16 05:37 Anion Gap 9 (8-16) 09/26/16 05:37 BUN 15 mg/dL (7-18) D 09/26/16 05:37 Creatinine 1.0 mg/dL (0.7-1.3) 09/26/16 05:37 Creat Clearance w eGFR > 60 (>60) 09/26/16 05:37 Random Glucose 147 mg/dL (74-106) H 09/26/16 05:37 Calcium 8.7 mg/dL (8.5-10.1) 09/26/16 05:37 Total Bilirubin 2.6 mg/dL (0.2-1.0) H D 09/26/16 05:37 AST 152 U/L (15-37) H D 09/26/16 05:37 ALT 159 U/L (12-78) H D 09/26/16 05:37 Alkaline Phosphatase 70 U/L (45-117) 09/26/16 05:37 Total Protein 5.7 g/dl (6.4-8.2) L 09/26/16 05:37 Albumin 2.7 g/dl (3.4-5.0) L 09/26/16 05:37 Current Medications Generic Name Dose Route Start Last Admin Trade Name Freq PRN Reason Stop Dose Admin Alprazolam 1 mg 09/25/16 11:00 09/26/16 10:20 Xanax - PO 1 mg BID DYANA Administration Amlodipine Besylate 10 mg 09/24/16 10:00 09/26/16 10:27 Norvasc - PO 10 mg DAILY DYANA Administration Azathioprine 200 mg 09/24/16 10:00 09/26/16 10:27 Imuran - PO 50 mg DAILY DYANA Administration Fenofibric Acid 135 mg 09/24/16 10:00 09/26/16 10:27 Trilipix - PO 135 mg DAILY DYANA Administration Lisinopril 20 mg 09/24/16 10:00 09/26/16 10:27 Prinivil PO 20 mg DAILY DYANA Administration Kielx-7-Ohyi Ethyl Esters 2 gm 09/24/16 22:00 09/26/16 10:27 Lovaza - PO 2 gm BID [facility] Administration Prednisone 60 mg 09/27/16 10:00 Deltasone - PO DAILY [facility] Home Medications Medication Instructions Recorded Alprazolam [Xanax] 2 mg PO BID PRN 09/23/16 Amlodipine Besylate [Norvasc -] 10 mg PO DAILY 09/23/16 Fenofibrate 290 mg PO BID 09/23/16 Lisinopril [Prinivil] 20 mg PO DAILY 09/23/16 [place]-3 Acid Ethyl Esters [Lovaza] 1 gm PO DAILY 09/23/16 Azathioprine [Imuran -] 200 mg PO DAILY #30 tablet 09/26/16 Docusate Sodium [Colace -] 100 mg PO TID #21 capsule 09/26/16 Prednisone [Deltasone -] 60 mg PO DAILY #30 tablet 09/26/16 ASSESSMENT AND PLAN: Patient is a 55 year old male with PMHx of autoimmune hepatitis, alcohol- induced pancreatitis 2008, HTN, depression who presents to the hospital complaining of fatigue for the past 3 days. # Recurrence of auto-immune hepatitis , Improving LFTs on IV steroid continue, and Immuran , Patient of Dr. Sánchez GI discussed with covering doctor that patient can go home on prednisone 60mg and Immuran 200mg daily. follow with by next Monday . Protonix continue # anxiety disorder will continue with 1mg Bid vs 2mg BID since can affect LFTs. Explained to the patient to take 1/2 the tablets of anax of 2mg ,patient has the meds at home. # Hx of HTN continue home meds # HLD continue Lovaza, Finofibrate DVt Px: SCD
--- NOTE | 2016-09-26 16:24 | DS ---
Physical Exam: SUBJECTIVE: Patient seen and examined. He is felling better today. Reports that he fell of the bed at night and has some mild tenderness on left rib cage (CXR nl, no acute pathology). He also states that hasn't had any BM for 3-4 days.Denies abdominal pain, N/V, fever, chills, dizziness, LOC. OBJECTIVE: Vital Signs Period Temp Pulse Resp BP Sys/Rose Pulse Ox Last 24 Hr 97.5 F-98.4 F 89-102 20-20 109-132/67-82 95 PHYSICAL EXAM GENERAL: The patient is awake, alert, and fully oriented, in no acute distress. HEAD: Normal with no signs of trauma. EYES: sclera anicteric, conjunctiva clear. ENT: oropharynx clear without exudates, moist mucous membranes. NECK: Trachea midline, supple. LUNGS: Breath sounds equal, clear to auscultation bilaterally, no wheezes, no crackles, no accessory muscle use. HEART: Regular rate and rhythm, S1, S2 without murmur, rub or gallop. ABDOMEN: Soft, nontender, nondistended, normoactive bowel sounds, no guarding, no rebound. EXTREMITIES: no edema. NEUROLOGICAL: Normal speech, gait not observed. PSYCH: Normal mood, normal affect. SKIN: Warm, dry, normal turgor. LABS Laboratory Results - last 24 hr 09/24/16 09/26/16 09/26/16 06:15 05:37 05:37 WBC 10.7 H RBC 4.02 Hgb 13.1 Hct 39.6 MCV 98.5 H MCHC 33.0 RDW 15.3 Plt Count 105 L MPV 11.4 H Sodium 139 Potassium 4.2 Chloride 102 Carbon Dioxide 28 Anion Gap 9 BUN 15 D Creatinine 1.0 Creat Clearance w eGFR > 60 Random Glucose 147 H Hemoglobin A1c % Calcium 8.7 Total Bilirubin 2.6 H D AST 152 H D ALT 159 H D Alkaline Phosphatase 70 Total Protein 5.7 L Albumin 2.7 L Hep Bs Antigen Negative Hepatitis C Antibody <0.1 09/26/16 05:37 WBC RBC Hgb Hct MCV MCHC RDW Plt Count MPV Sodium Potassium Chloride Carbon Dioxide Anion Gap BUN Creatinine Creat Clearance w eGFR Random Glucose Hemoglobin A1c % 5.3 Calcium Total Bilirubin AST ALT Alkaline Phosphatase Total Protein Albumin Hep Bs Antigen Hepatitis C Antibody HOSPITAL COURSE: Date of Admission:09/23/16 Date of Discharge: 09/26/16 Minutes to complete discharge: 50 Discharge Summary Reason For Visit: HYPERBILIRUBINEMIA Current Active Problems Autoimmune hepatitis (Acute) Hyperbilirubinemia (Acute) Transaminitis (Acute) Hospital Course: Patient is a 55 year old male with PMH of autoimmune hepatitis, alcohol-induced pancreatitis 2008, HTN, depression who presents to the hospital complaining of fatigue for 3 days. He states that didn't have appetite for 3 days and had intermittent hiccups, increased gas. He had 2 episodes of vomiting night, non- bloody non-bilious output. He states that recently his bowel movements are hard , not sure if he noticed any blood in it. He was told recently that his eyes look yellow. Hoaspital course; He was admitted for recurrence of autoimmune hepatitis. We started Methylprednisone 40 mg IV Q8H, GI consulted; Dr. Sánchez, HBs Ag, HCV ab, liver panel, CT of his abdomen showed no acute pathology. We monitored his liver function everyday. He clinically improved. GREGORY: IVF and avoided nephrotoxic substances, for depression we continued Xanax, HTN; Lisinopril and Amlodipine. We discharged the pt to f/u with Dr. Sánchez in a week. We prescribed Prednisone 60 mg qd, Imur 200 mg qd, Colace 100 TID, Xanax 1 mg instead of 2 mg. He was informed about that. He will continue his other ambulatory meds. Condition: Improved - Instructions Diet, Activity, Other Instructions: Please visit Dr. Sánchez on Monday next week at 9 AM. If you have abdominal pain, diarrhea, weakness, dizziness, chest pain, bleeding come to Emergency Room as soon as possible. Take Prednisone and Imuran everyday. The dose of imuran changed to 200 mg a day. Take Colace 3 times a day if needed for constipation. All other medications are the same. Referrals: Cristhian Sánchez MD [Staff Physician] - 1 Week Haroon London [Primary Care Provider] - 1 Week Disposition: HOME - Home Medications Comprehensive Discharge Medication List: Ambulatory Orders Alprazolam [Xanax] 2 mg PO BID PRN 09/23/16 Amlodipine Besylate [Norvasc -] 10 mg PO DAILY 09/23/16 Fenofibrate 290 mg PO BID 09/23/16 Lisinopril [Prinivil] 20 mg PO DAILY 09/23/16 [place]-3 Acid Ethyl Esters [Lovaza] 1 gm PO DAILY 09/23/16 Azathioprine [Imuran -] 200 mg PO DAILY #30 tablet 09/26/16 Docusate Sodium [Colace -] 100 mg PO TID #21 capsule 09/26/16 Prednisone [Deltasone -] 60 mg PO DAILY #30 tablet 09/26/16 Problem List - Problems (1) Hyperbilirubinemia Code(s): E80.6 - OTHER DISORDERS OF BILIRUBIN METABOLISM (2) Transaminitis Code(s): R74.0 - NONSPEC ELEV OF LEVELS OF TRANSAMNS & LACTIC ACID DEHYDRGNSE (3) Autoimmune hepatitis Code(s): K75.4 - AUTOIMMUNE HEPATITIS This patient is new to me today: No Emergency Visit: Yes ED Registration Date: 09/23/16 Care time: The patient presented to the Emergency Department on the above date and was hospitalized for further evaluation of their emergent condition. Critical Care patient: No - Discharge Referral Referred to [facility] Med P.C[facility] No
[2016-09-26] MEDS ORDERED: methylPREDNISolone NA SUCC 40 MG/1 ML VIAL IVPB ONE (17:05)
[2016-09-26] MEDS ORDERED: OMEGA-3 ACID ETHYL ESTERS (FATTY-ACIDS) 1 GM CAPSULE (FP) PO SCH (22:00)
[2016-09-27] MEDS ORDERED: predniSONE 20 MG TABLET (UD) PO SCH (10:00)
--- NOTE | 2016-09-28 14:00 | EKG ---
Test Reason : Blood Pressure : / mmHG Vent. Rate : 099 BPM Atrial Rate : 099 BPM P-R Int : 152 ms QRS Dur : 082 ms QT Int : 326 ms P-R-T Axes : 067 055 031 degrees QTc Int : 418 ms NORMAL SINUS RHYTHM ANTERIOR INFARCT , AGE UNDETERMINED ABNORMAL ECG WHEN COMPARED WITH ECG OF 03-AUG-2009 13:43, NO SIGNIFICANT CHANGE WAS FOUND Confirmed by KELLY MCNAMARA MD ([id number]) on 09/28/2016 2:00:32 PM Referred By: Confirmed By:KELLY MCNAMARA MD
== END 2016-09-26 18:31 | disposition home or self-care (01) | DRG 442 ==
LOC: JER 10:57 → JERBED 16:59 → J5S 21:32
PROVIDERS: ADMIT Internal Medicine; ATTEND Internal Medicine
DX: K75.4 Autoimmune hepatitis (principal); N17.9 Acute kidney failure, unspecified; E80.6 Other disorders of bilirubin metabolism; I10 Essential (primary) hypertension; R74.0 Nonspecific elevation of levels of transaminase and lactic acid dehydrogenase [LDH]; E78.5 Hyperlipidemia, unspecified; R06.6 Hiccough; F41.8 Other specified anxiety disorders; Z87.891 Personal history of nicotine dependence; D69.6 Thrombocytopenia, unspecified
CPT/HCPCS: 36415; 71010-TC; 74176-TC; 80053; 80076; 83036; 83690; 84436; 84439; 84443; 84479; 85025; 85027; 85610; 85730; 87254; 87340; 87804; 93005; 93010; 99283-25